=== PATIENT | male | born 1965 | race Caucasian/White ===

== ENCOUNTER 2017-03-01 12:37 | Emergency (ER) | payer OTHER ==
--- NOTE | ~2017-03-01 | CR173 ---
[facility] A Service of [facility] & [facility] RADIOLOGY TEXT RESULTS PATIENT: ANGELIKA HENSLEY LOCATION: CFTX : 69 UNIT #: [id number] AGE: [address]: Alhaji Guillen SEX: M ORDER DR: [id number] [facility] [address] [place], [place] [address] [id number] E MR#: [id number] Acc #: [id number] NAME: ANGELIKA HENSLEY : 1965 SEX: M STUDY DATE/TIME: 03/01/2017 16:20 UNIT: CFTX ROOM: STUDY DESCRIPTION: CR Knee 3 Views Rt Attending Physician: Alhaji Guillen Ordering Physician: Alhaji Guillen (Res) Primary Care Physician: Andree Corado Pa-C MEDICAL IMAGING REPORT This report is preliminary unless electronic signature is present EXAM Right knee, 03/01/2017 INDICATIONS Knee pain since last Thursday. May have slept on it wrong. TECHNIQUE Lateral, frontal and sunrise views performed. No comparisons. FINDINGS The bones are osteopenic. No acute fracture. Mild tricompartmental degenerative change most severe in the patellofemoral compartment. Incidental fabella. IMPRESSION 1. Osteopenia and mild degenerative change, otherwise negative. Dictated by... Jesus Morgan M.D. THIS IS AN ELECTRONICALLY VERIFIED REPORT Jesus Morgan M.D. at 03/01/2017 8:41 PM DIGNA/mitzy TD: 03/01/2017 18:58 JOB #: [id number] MEDICAL IMAGING REPORT Page 1 of 1 COPY
== END 2017-03-01 17:22 | disposition home or self-care (01) ==
LOC: CFTX 12:37 → CED 12:37 → CFTX 15:51
DX: S83.91XA Sprain of unspecified site of right knee, initial encounter (principal); I10 Essential (primary) hypertension; M10.9 Gout, unspecified; Z98.890 Other specified postprocedural states; X58.XXXA Exposure to other specified factors, initial encounter; Y92.9 Unspecified place or not applicable
CPT/HCPCS: 29530; 73562; 96372; 99283; J1885